=== PATIENT | female | born 1985 | race Caucasian/White ===

== ENCOUNTER 2016-09-30 10:23 | Emergency (ER) | payer OTHER ==
[~2016-09-30] VITALS: Ht 162.6 cm; Wt 62.5 kg
[~2016-09-30 10:23] MED LIST: BACTRIM,SEPT1 TABLET PO; DILAUDID4 MG PO; NAPROSYN500 MG PO; NO HOME MEDS; NOHOMEMEDS; PERCOCET 5/31 TABLET PO; PYRIDIUM200 MG PO; ZOFRAN ODT4 MG PO
[2016-09-30] MEDS ORDERED: ZOLOFT100 MG PO (12:49)
[2016-09-30] MEDS ORDERED: ZOLPIDEM TARTRA10 MG PO (12:49)
[2016-09-30 13:50] LABS: INFLUENZA A VIRAL ANTIGEN NEGATIVE; INFLUENZA B VIRAL ANTIGEN NEGATIVE
[2016-09-30 14:56] VITALS: BP 124/88
== END 2016-09-30 14:56 | disposition home or self-care (01) ==
LOC: EME 10:23
PROVIDERS: Nurse Practitioner Family
DX: J06.9 Acute upper respiratory infection, unspecified (principal); J02.9 Acute pharyngitis, unspecified; Z88.0 Allergy status to penicillin; Z88.7 Allergy status to serum and vaccine
CPT/HCPCS: 71020; 87502; 99281; 99284